=== PATIENT | female | born 1970 | race Caucasian/White ===

== ENCOUNTER → 2019-03-20 | Outpatient (CLI) | payer OTHER ==
[~2019-03-20] MED LIST: ALBUTEROL PO; BUTALB-APAP-CA1 EACH PO; CHROMIUM PICO200 MC1 PO; COMBIVENT INH; EPIPEN0.3 MG/0.1 IM; EXCEDRIN MIGRA1 EAC1 PO; FLEXERIL PO; FLONASE 0.05%50 MCG NASAL; HYDROCHLOROTHIA25 M1 PO; HYDROXYZINE HCL25 M2 PO; IPRAT PO; LIPITOR 20 MG T20 M1 PO; LOPRESSOR50 PO; MELATONIN3 MG PO; METFORMIN HCL500 MG PO; NEURONTIN 300300 M1 PO; OMEPRAZOLE40 MG PO; OXYBUTYNIN CHLO15 MG PO; POTASSIUM20 PO; PRAZOSIN 1 MG CA1 M1 PO; PREDNISONE 20 M20 M1 PO; SUMATRIPTAN SUC50 MG PO; SYMBICORT160 MCG/4. INH; SYNTHROID100 MC1 PO; TOPROL XL100 MG PO; VITAMIN D1000 UNI1 PO; ZANTAC 150MG T150 MG PO; ZOLOFT100 MG PO; ZOLPIDEM TARTRA10 MG PO; ZYRTEC 10 MG TA10 MG PO; ZYRTEC10 MG PO; [UNRECOGNIZED DRUG - MIXTURE] PO
== END ==
LOC: M.PC 10:30
DX: M47.816 Spondylosis without myelopathy or radiculopathy, lumbar region (principal); M51.36 Other intervertebral disc degeneration, lumbar region

== ENCOUNTER → 2019-09-13 | Outpatient (CLI) | payer OTHER | END | disposition home or self-care (01) | LOC: M.PC 09-06 14:10 | DX: M54.5 Low back pain (principal); M47.816 Spondylosis without myelopathy or radiculopathy, lumbar region; I10 Essential (primary) hypertension; E11.9 Type 2 diabetes mellitus without complications; J45.909 Unspecified asthma, uncomplicated; M51.36 Other intervertebral disc degeneration, lumbar region; E78.5 Hyperlipidemia, unspecified; E03.9 Hypothyroidism, unspecified; K21.9 Gastro-esophageal reflux disease without esophagitis; F32.9 Major depressive disorder, single episode, unspecified; F41.9 Anxiety disorder, unspecified; Z98.890 Other specified postprocedural states; F17.220 Nicotine dependence, chewing tobacco, uncomplicated; Z79.899 Other long term (current) drug therapy; Z90.49 Acquired absence of other specified parts of digestive tract; Z95.0 Presence of cardiac pacemaker; Z90.710 Acquired absence of both cervix and uterus; Z85.41 Personal history of malignant neoplasm of cervix uteri; Z88.8 Allergy status to other drugs, medicaments and biological substances ==

== ENCOUNTER → 2020-05-08 | Outpatient (CLI) | payer OTHER | LOC: M.PC 09:40 | PROVIDERS: ATTEND Physical Medicine & Rehabilitation | DX: M51.36 Other intervertebral disc degeneration, lumbar region (principal); M47.816 Spondylosis without myelopathy or radiculopathy, lumbar region; F17.200 Nicotine dependence, unspecified, uncomplicated; Z79.899 Other long term (current) drug therapy ==

== ENCOUNTER → 2021-06-09 | Outpatient (CLI) | payer OTHER | LOC: M.PC 09:20 | PROVIDERS: ATTEND Physical Medicine & Rehabilitation | DX: M47.816 Spondylosis without myelopathy or radiculopathy, lumbar region (principal); M51.26 Other intervertebral disc displacement, lumbar region; F17.200 Nicotine dependence, unspecified, uncomplicated ==